=== PATIENT | male | born 1985 | race Caucasian/White ===

== ENCOUNTER 2025-09-21 13:56 | Outpatient (RCR) | payer OTHER, SELFPAY | END 2025-09-21 19:00 | disposition home or self-care (01) | LOC: PT 13:56 | PROVIDERS: Visit Provider Student in an Organized Health Care Education/Training Program | DX: M54.12 Radiculopathy, cervical region (principal); M54.16 Radiculopathy, lumbar region; M67.922 Unspecified disorder of synovium and tendon, left upper arm; M19.012 Primary osteoarthritis, left shoulder; M75.82 Other shoulder lesions, left shoulder ==

== ENCOUNTER → 2025-10-05 | Outpatient (CLI) | payer OTHER, SELFPAY ==
--- NOTE | 2025-10-05 11:18 | MRI_ITS ---
PROCEDURE: SPINE LUMBAR (ROUTINE) 10/05/2025 REASON FOR EXAM: PAIN, RADICULOPATHY X6 WEEKS L>R TECHNIQUE: Procedure Code: MRISPL Modality: MR Procedure: SPINE LUMBAR (ROUTINE) COMPARISON: None available. FINDINGS: For the purposes of this report, the most caudal rectangular vertebral body will be designated L5. The next most caudal trapezoidal shaped vertebral body will be designated S1. The intervening disc at the lumbosacral angle is designated L5-S1. The normal lumbar lordosis is maintained. The lumbar vertebral bodies are normal in height. Trace grade 1 L5-S1 retrolisthesis. There is no bone marrow replacing lesion in the lumbar spine. Multilevel disc desiccation. Intervertebral disc space height loss most prominent at L5-S1. Prominent anterior osteophyte at L5-S1. There is no evidence of signal abnormality in the imaged distal spinal cord. The conus medullaris terminates at the level of L2. T12-L1: No significant spinal canal stenosis or neural foraminal narrowing. L1-L2: No significant spinal canal stenosis or neural foraminal narrowing. L2-L3: No significant spinal canal stenosis or neural foraminal narrowing. Bilateral facet arthrosis and ligamentum flavum hypertrophy. L3-L4: No significant spinal canal stenosis or neural foraminal narrowing. Bilateral facet arthrosis with right facet joint effusion. L4-L5: Disc bulge, bilateral facet arthrosis and facet joint effusions, and ligamentum flavum hypertrophy. No significant spinal canal stenosis. Mild right neural foraminal narrowing. Intact left neural foramen. L5-S1: Disc bulge, bilateral facet arthrosis, and ligamentum flavum hypertrophy. Mild spinal canal stenosis. Mild bilateral neural foraminal narrowing. Posteriorly oriented synovial cyst adjacent to the left facet joint measuring approximately 3 mm in diameter within the posterior muscle compartment. Predominantly type 2 Modic endplate changes with mild peripheral type 1 Modic endplate changes. The posterior paraspinal muscles are unremarkable. MRI/Spine Lumbar (Routine) IMPRESSION: Lumbar spondylosis without high-grade spinal canal or neural foraminal stenosis most prominent at L5-S1. Reading Location: [id number]
== END | disposition home or self-care (01) ==
LOC: MRI 11:17
PROVIDERS: PCP Nurse Practitioner Family; Referring Provider Student in an Organized Health Care Education/Training Program; Visit Provider Student in an Organized Health Care Education/Training Program
DX: M54.16 Radiculopathy, lumbar region (principal)
CPT/HCPCS: 72148

== ENCOUNTER → 2025-10-28 | Outpatient (CLI) | payer OTHER, SELFPAY ==
--- NOTE | 2025-10-28 16:24 | MRI_ITS ---
PROCEDURE: UPPER EXT JOINT ONLY(ROUTINE) 10/28/2025 REASON FOR EXAM: PAIN, EVAL CUFF TEAR TECHNIQUE: Procedure Code: MRIUEJ Modality: MR Procedure: UPPER EXT JOINT ONLY(ROUTINE) Multiplanar and multisequence images were obtained without IV contrast administration. COMPARISON: 19-Sep-2025 CR FINDINGS: Thickened supraspinatus tendon shows intrasubstance high signal abutting its articular surface suggesting tendonitis with partial thickness tear. No evidence of complete fibers interruption. Intrasubstance high signal of the subscapularis tendon with partial fibers ill definition suggesting tendonitis with partial thickness tear. No evidence of complete fibers interruption. Thickening and intrasubstance high signal of the infraspinatus tendon suggesting tendonitis with no evidence of complete fibers interruption. The teres minor tendon appears intact. High signal of the intra-articular segment of the long head of biceps tendon showing medial subluxation and partial fibers ill definition . No obvious glenoid labral tears. Mild degenerative arthropathic changes of the acromioclavicular joint evident by marginal osteophytic lipping and cortical irregularities with subcortical marrow edema of its opposing articular surfaces & hypertrophied joint capsule inducing subacromial impingement. Intact glenohumeral joint. Mild glenohumeral joint effusion Fluid signal distending the subcoracoid and subacromial/subdeltoid bursa. No marrow infiltrative lesions. The neurovascular bundles appear unremarkable. MRI/Upper Ext Joint Only(Routine) IMPRESSION: Mild degenerative arthropathic changes of the acromioclavicular joint with suba cromial impingement. Supraspinatus tendonitis with partial thickness tear. Subscapularis tendonitis with partial thickness tear. Infraspinatus tendonitis. Tendonitis with partial thickness tear of the long head of biceps tendon. Mild glenohumeral joint effusion with small subcoracoid and subacromial/subdelt oid bursitis. Reading Location: [place] [id number]
== END | disposition home or self-care (01) ==
LOC: MRI 16:23
PROVIDERS: PCP Nurse Practitioner Family; Referring Provider Orthopaedic Surgery Sports Medicine; Visit Provider Orthopaedic Surgery Sports Medicine
DX: M25.512 Pain in left shoulder (principal)
CPT/HCPCS: 73221

== ENCOUNTER 2025-11-01 15:17 | Emergency (ER) | payer SELFPAY ==
[2025-11-01 15:18] VITALS: BP 154/98; PULSE 92; RESP 15; TEMP 36.6; O2SAT 97; BMI 54.2
--- NOTE | 2025-11-01 15:33 | EX.ED.DYSGE1 ---
HPI History of Present Illness Chief Complaint: Abd Pain [facility] Medical History Left shoulder pain Right shoulder pain History of cellulitis Diabetes Hypertension Home Medications ?Medication ?Instructions ?Recorded ?Last Taken ?Type gabapentin 300 mg capsule 300 mg PO QHS #30 caps 09/13/25 10/31/25 Rx lisinopril 20 mg tablet 20 mg PO QDAY 09/13/25 10/31/25 History meloxicam 15 mg tablet 15 mg PO QDAY #30 tabs 09/13/25 11/01/25 14:02 Rx testosterone cypionate 200 mg/mL 100 mg IM Q2W 09/13/25 10/30/25 History intramuscular oil baclofen 10 mg tablet 10 mg PO TID PRN muscle spasm #60 10/11/25 Unknown Rx Held on 11/01/25. tabs Instructions: hasnt taken yet cyclobenzaprine 10 mg tablet 10 mg PO TID PRN PRN muscle spasm 11/01/25 Unknown History ondansetron 4 mg disintegrating 4 mg PO Q8H PRN PRN Nausea #10 tabs 11/01/25 Unknown Rx tablet pantoprazole 20 mg tablet,delayed 20 mg PO DAILY #30 tabs 11/01/25 Unknown Rx release semaglutide 2 mg/dose (8 mg/3 mL) 1.6 mg subcut QWEEK 11/01/25 10/30/25 History subcutaneous pen injector Allergy/AdvReac Type Severity Reaction Status Date / Time No Known Allergies Allergy Verified 11/01/25 15:20 Family History Mother Kidney disease Hypertension Father Congestive heart failure (CHF) Surgical History History of right knee surgery Social History Smoking Status: Never smoker alcohol intake: never EXAM Physical Exam Const Vital Signs: 11/01/25 15:18 11/01/25 17:31 11/01/25 19:04 Temperature 98 F 98.6 F Temperature Source Oral Pulse Rate 92 86 88 Respiratory Rate 15 20 H 24 H Blood Pressure 154/98 H 133/75 H 140/87 H Blood Pressure Mean 116 94 104 Pulse Ox 97 99 100 Oxygen Delivery Method Room Air Room Air [facility] [place] Narr[place] Medical decision making narrative: HISTORY OF PRESENT ILLNESS: Chief complaint: Abdominal pain 40-year-old male history of degenerative disc disease, obesity, hypertension, type 2 diabetes presents with abdominal pain that started around 1 AM. Notes the pain radiates to his mid back. He states he does not drink alcohol. Notes history of gallstones. Denies chest pain or shortness of breath. Denies changes to bowel or bladder habits. Denies history of abdominal surgery. Last bowel movement was this morning. Denies melena or hematochezia. Denies leg swelling. REVIEW OF SYSTEMS: Pertinent positives: Abdominal pain Pertinent negatives: As per [facility] PHYSICAL EXAM: Nursing triage notes reviewed, Vital signs reviewed Constitutional: please see [facility] HENT: MMM Eyes: Pupils equal round and reactive to light, Extraocular muscles intact Neck: No stridor, no JVD, full neck ROM Lungs: Clear to auscultation, No wheezing or rales. No increased work of breathing, no conversational dyspnea, no accessory muscle use, no nasal flaring. No respiratory distress noted Heart: Regular rate and rhythm, No murmurs, No rubs and No gallops, 2+ distal pulses (radial, femoral, posterior tibial) in all extremities Abdomen: Soft, right upper quadrant TTP, positive Palacio sign but no rigidity, rebound or guarding, no obvious peritoneal signs, no palpable pulsatile abdominal masses, no auscultated abdominal bruit : No CVAT Extremities: No edema Neuro: No new focal neurological deficits, cranial nerves II through XII intact, 5/5 strength in all present extremities. Intact sensation to light touch in all present extremities, 2+ reflexes bilateral patella tendons. Skin: No rash or lesions noted MEDICAL DECISION MAKING: Chief Complaint: please see HPI External records reviewed: Reviewed prior imaging studies: No recent Carvajal imaging of the abdomen or pelvis Factors affecting care: As per [facility] Social determinants of health: Denies Alcohol History obtained from others: none Consults: none [facility] Narrative: The patient was initially hemodynamically stable saturating 97% room air afebrile. Abdominal exam with epigastric abdominal pain, right upper quadrant abdominal pain and positive Palacio sign. No obvious peritoneal signs were noted. I considered the following differential diagnosis: AAA, small bowel obstruction, abdominal perforation, appendicitis, acute pancreatitis, hepatobiliary pathology (acute cholecystitis), mesenteric ischemia, pathology (ie nephrolithiasis, pyelonephritis). Atypical ACS I obtained a broad lab and imaging work to further determine if the patient was suffering from a life-threatening etiology. Initially resuscitated the patient with 1 L normal saline, gave 4 mg of IV Zofran, 15 mg IV Toradol and 4 mg IV morphine for symptomatic control of pain and nausea. ALL IMAGES (IF OBTAINED) HAVE BEEN PERSONALLY REVIEWED AND INTERPRETED BY MYSELF. EKG with normal sinus rhythm rate 89, left axis deviation, normal intervals, no STEMI CBC with leukocytosis suggestive of systemic formation, noted hemoconcentration suggesting dehydration, no thrombocytopenia BMP without evidence of significant electrolyte abnormalities, no anion gap, no acute kidney injury. LFTs show no evidence of hepatobiliary pathology. Lipase slightly elevated but not consistent with acute pancreatitis High-sensitivity troponin is negative, no evidence of myocardial ischemia I have personally reviewed the patient's chest x-ray. Chest x-ray is unremarkable for pulmonary edema, pneumothorax, pneumonia or focal cardiopulmonary abnormality. CT scan of pelvis shows cholelithiasis but no CT evidence of acute cholecystitis. No other intra-abdominal pathology could be assessed including perforation or obstruction. Repeat abdominal exam remained benign. The cause of the patient's presentation remains unclear. It may be some inflammatory GI etiology such as gastritis, esophagitis or peptic ulcer disease. He will need prompt GI follow-up. Will give GI referral. Strict return precautions were discussed The patient and/or family, caregivers express understanding. The patient and/or family, caregivers agrees with the plan. Shared decision making: I will have a discussion with the patient and or visitors regarding risk/benefits of further testing or admission. They will be made aware of of the risk/benefits inherent in this decision they will be given the opportunity to voice understanding. Total critical care time today provided was at least 0 minutes. This excludes separately billable procedures. Critical care time (if documented) is secondary to the patient having high probability of clinically significant/life threatening deterioration in the patient's condition which required my urgent intervention. Impression: 1. Acute abdominal pain 2. History of hypertension Dispo: Discharge This note was generated with [employer] dictation software. It may contain incorrect words, spelling, and punctuation that were not noted in review of the chart prior to signing. Lab Data Labs: Laboratory Results - last 24 hr 11/01/25 15:38 WBC 13.6 H RBC 6.53 H Hgb 18.8 H* Hct 54.4 H MCV 83.3 MCH 28.8 MCHC 34.6 RDW Std Deviation 42.3 RDW Coeff of Kaleb 14.5 Plt Count 255 MPV 9.1 Immature Gran % (Auto) 0.400 Neut % (Auto) 83.3 H Lymph % (Auto) 10.4 L [place] % (Auto) 5.7 Eos % (Auto) 0.1 Baso % (Auto) 0.1 Absolute Neuts (auto) 11.3 H Absolute Lymphs (auto) 1.41 Nucleated RBC % 0 Sodium 136 Potassium 4.3 Chloride 98 Carbon Dioxide 23.3 Anion Gap 15 BUN 7 Creatinine 0.77 Estim Creat Clear Calc 200.68 Est GFR (MDRD) Non-Af 115 BUN/Creatinine Ratio 9.2 L Glucose 106 H Calcium 9.4 Total Bilirubin 0.47 AST 22 ALT 37 Alkaline Phosphatase 45 Troponin T High Sens 6 Total Protein 6.9 Albumin 4.3 Globulin 2.6 Albumin/Globulin Ratio 1.6 Lipase 76 H Radiography Diagnostic Testing: Clinical Impression(s) from Imaging Studies Gallbladder Ultrasound 11/01/25 15:41 IMPRESSION: 1. Diffuse hepatic steatosis. 2. Cholelithiasis. No evidence for acute cholecystitis. 3. No biliary ductal dilatation. Reading Location: [facility] Abdomen/Pelvis CT 11/01/25 16:34 IMPRESSION: No evident acute/active inflammatory intra-abdominal pathology. Hepatic steatosis. Cholelithiasis without CT evidence for acute cholecystitis. If clinical concern persists further evaluation with ultrasound and/or nuclear HIDA scan may be helpful. Reading Location: [facility] Chest X-Ray 11/01/25 16:40 IMPRESSION: No acute cardiopulmonary disease. Reading Location: [facility] Discharge Plan Triage Chief Complaint: Abd Pain ED Provider: Manny Hyaden Dx/Rx/DC Orders Instructions: ED Abdominal Pain Unkn Cause Male... Prescriptions: New pantoprazole 20 mg tablet,delayed release (DR/EC) 20 mg PO DAILY Qty: 30 0RF ondansetron 4 mg tablet,disintegrating 4 mg PO Q8H PRN PRN (Reason: Nausea) Qty: 10 0RF No Action lisinopril 20 mg tablet 20 mg PO QDAY testosterone cypionate 200 mg/mL oil 100 mg IM Q2W meloxicam 15 mg tablet 15 mg PO QDAY Qty: 30 0RF gabapentin 300 mg capsule 300 mg PO QHS Qty: 30 0RF baclofen 10 mg tablet 10 mg PO TID PRN (Reason: muscle spasm) Qty: 60 0RF cyclobenzaprine 10 mg tablet 10 mg PO TID PRN PRN (Reason: muscle spasm) semaglutide 2 mg/dose (8 mg/3 mL) pen injector 1.6 mg subcut QWEEK Primary Care Provider: Miladis Valladares Referrals: Tono Ron DO [Med Staff - Active Staff, Gastroenterology] Activity Restrictions/Additional Instructions: Thank you for trusting us with your care today! Your labs images are reassuring. Specifically there is no sign of an acute surgical pathology in your abdomen. No sign of gallbladder pathology, heart pathology or a home health nurse licensed practical obstructed abdomen. Your symptoms may be related to inflammation of your GI tract such as esophagitis, gastritis or peptic ulcer. These diseases are further diagnosed with an upper endoscopy or EGD. This performed by tank car cleaner. Please take pantoprazole daily. Please take Zofran as needed for nausea and vomiting Please take Tylenol (2 pills, 650 mg), every 6 hours as needed for pain and fever control. Please discontinue taking meloxicam if you still do. This medicine can also cause GI upset. Please return to the emergency department if your symptoms change or worsen. Please follow with Gastroenterology (Dr. Ron) for further outpatient evaluation and management. Print Language: Guyanese Disposition Disposition: Home, Self Care Discharge Date/Time: 11/01/25 19:12
--- NOTE | 2025-11-01 15:41 | US_ITS ---
PROCEDURE: US GALLBLADDER 11/01/2025 REASON FOR EXAM: RUQ ABD PAIN, HX OF GALLSTONES TECHNIQUE: Procedure Code: USGB Modality: US Procedure: GALLBLADDER COMPARISON: Abdominal CT earlier same day. FINDINGS: Liver: Diffusely echogenic hepatic parenchyma compatible with fatty infiltration. No suspicious focal lesion visualized. Small area of focal fatty sparing adjacent to the gallbladder fossa. Gallbladder: Cholelithiasis, with multiple echogenic shadowing gallstones dependently within the gallbladder. No significant gallbladder wall thickening or pericholecystic fluid is seen. No sonographic Palacio's sign. Common bile duct: Poorly visualized due to bowel gas. Pancreas: Poorly visualized due to bowel gas. Other: Visualized right kidney is unremarkable. No right upper quadrant ascites. US/Gallbladder IMPRESSION: 1. Diffuse hepatic steatosis. 2. Cholelithiasis. No evidence for acute cholecystitis. 3. No biliary ductal dilatation. Reading Location: [id number]
--- NOTE | 2025-11-01 15:41 | EKG12_ITS ---
Test Reason : GENERAL Blood Pressure : */* mmHG Vent. Rate : 89 BPM Atrial Rate : 89 BPM P-R Int : 144 ms QRS Dur : 100 ms QT Int : 354 ms P-R-T Axes : 8 -38 12 degrees QTcB Int : 430 ms Normal sinus rhythm Left axis deviation Abnormal ECG Confirmed by Jigar Ortega ([id number]), science editor ROSITA MONAHAN ([id number]) on 11/07/2025 9:04:08 AM Referred By: Confirmed By: Jigar Ortega
[2025-11-01 15:51] LABS: Hematocrit 54.4 % (40-54); Hemoglobin 18.8 g/dL (13.0-16.5); Immature Granulocytes Count 0.050 X10^3/uL (0.0-0.0); Mean Corp Hgb Conc 34.6 g/dL (32-36); Mean Corpuscular Volume 83.3 fL (80-94); Mean Platelet Vol. 9.1 fl (6.2-12.0); NRBC Flagged by Analyzer 0 % (0-5); Platelet Count 255 K/mm3 (150-450); RBC Distribution Width CV 14.5 % (11.6-14.6); RBC Distribution Width SD 42.3 fl (35.1-43.9); Red Blood Count 6.53 M/mm3 (4.6-6.2); White Blood Count 13.6 K/mm3 (4.4-11.0)
[2025-11-01] MEDS: 0.9% Normal Saline (1000mL) 1,000 ML 1000 ML IV (16:05)
[2025-11-01 16:08] LABS: AST(SGOT) 22 U/L (<=37); Alanine Aminotransfer ALT/SGPT 37 U/L (<=46); Albumin, Serum 4.3 g/dL (3.5-5.0); Alkaline Phosphatase 45 U/L (40-129); Anion Gap 15 (7-18); BUN 7 mg/dL (4-19); BUN/Creat Ratio 9.2 RATIO (10-20); Calcium,Total 9.4 mg/dL (7.6-11.0); Carbon Dioxide 23.3 mmol/L (20.0-29.0); Chloride 98 mmol/L (96-106); Estimated Creatinine Clearance 200.68 ml/min (50-250); Globulin 2.6 g/dL (2.2-4.2); Glucose 106 mg/dL (70-99); Lipase 76 U/L (13-75); Potassium 4.3 mmol/L (3.5-5.1)
[2025-11-01 16:11] LABS: Troponin T High Sensitivity 6 ng/L (<=22)
--- NOTE | 2025-11-01 16:34 | CT_ITS ---
PROCEDURE: CT ABDOMEN/PELVIS W IV CONT ONLY 11/01/2025 REASON FOR EXAM: EPIGASTRIC/RIGHT QUAD ABDOMINAL PAIN RULE OUT PERF TECHNIQUE: Procedure Code: [id number] Modality: CT Procedure: ABDOMEN/PELVIS W IV CONT ONLY Coronal and Sagittal reconstruction series were provided. CONTRAST: Isovue 370 VOLUME: 93 mL One or more dose reduction techniques were used (e.g., Automated exposure control, adjustment of the mA and/or kV according to patient size, use of iterative reconstruction technique. RADIATION DOSE SUMMARY: DLP: 1475.84 mGycm COMPARISON: None. FINDINGS: Lung bases: Clear. Liver: Diffuse hepatic steatosis. Gallbladder: Cholelithiasis. No substantial pericholecystic inflammatory changes to suggest acute cholecystitis. No biliary ductal dilatation. Spleen: Unremarkable. Pancreas: Unremarkable. Adrenals: Unremarkable. Kidneys: Unremarkable. No urolithiasis or hydronephrosis. Bladder: Unremarkable. Reproductive Organs: Unremarkable. Nonenlarged prostate. Bowel: No evidence of obstruction or active inflammatory process. Appendix is surgically absent. Mild distal colonic diverticulosis without active diverticulitis. Lymph nodes: No enlarged abdominopelvic lymph nodes. Vasculature: Normal in course and caliber. Peritoneum / Retroperitoneum: No ascites or free air. Bones: Mild multilevel degenerative changes of the spine. CT/Abdomen/Pelvis W IV Cont ONLY IMPRESSION: No evident acute/active inflammatory intra-abdominal pathology. Hepatic steatosis. Cholelithiasis without CT evidence for acute cholecystitis. If clinical concern persists further evaluation with ultrasound and/or nuclear HIDA scan may be helpful. Reading Location: [id number]
--- NOTE | 2025-11-01 16:40 | RAD_ITS ---
PROCEDURE: CHEST 1 VIEW (PORTABLE) 11/01/2025 REASON FOR EXAM: EPIGASTRIC ABDOMINAL PAIN TECHNIQUE: Frontal view of the chest. COMPARISON: CT chest 08/01/2025 FINDINGS: Lungs/Pleura: Clear. Heart/Mediastinum: Normal in size. Bones/Soft tissues: Unremarkable. RAD/Chest 1 View (Portable) IMPRESSION: No acute cardiopulmonary disease. Reading Location: [id number]
[2025-11-01 17:31] VITALS: BP 133/75; PULSE 86; RESP 20; O2SAT 99
[2025-11-01] MEDS: Mag /Aluminum/Simeth WCH UDC 30 ML ORAL.SUSP PO (18:42)
[2025-11-01] MEDS: Lidocaine 2% Viscous15 ML UDC 15 ML PO (18:42)
[2025-11-01] MEDS: Famotidine 200 MG/20 ML MDV 20 MG in 0.9% Normal Saline (Pres. free 8 ML 300 MG IV (19:02)
[2025-11-01 19:04] VITALS: BP 140/87; PULSE 88; RESP 24; TEMP 37; O2SAT 100
== END 2025-11-01 19:12 | disposition home or self-care (01) ==
PROVIDERS: Emergency Provider Emergency Medicine; PCP Nurse Practitioner Family; Visit Provider Emergency Medicine
DX: R10.9 Unspecified abdominal pain (principal); E11.9 Type 2 diabetes mellitus without complications; I10 Essential (primary) hypertension; Z79.899 Other long term (current) drug therapy; Z79.85 Long-term (current) use of injectable non-insulin antidiabetic drugs
CPT/HCPCS: 71045; 74177; 76705; 80053; 83690; 84484; 85025; 93005; 96361; 96374; 96375; 99285; Q9967; A4216; J2405